=== PATIENT | female | born 1995 | race Two or more races ===

== ENCOUNTER 2021-04-16 15:54 | Emergency (ER) | payer OTHER ==
[~2021-04-16] VITALS: Ht 175.3 cm; Wt 100.0 kg
[2021-04-16] MEDS ORDERED: ALBUTEROL/IPRATROPIUM 2.5MG/0.5MG, 3 ML NPPB ONE (16:30)
[2021-04-16] MEDS ORDERED: LORazepam 1MG TABLET PO ONE (16:30)
--- NOTE | 2021-04-16 16:30 | NUR ---
PT PRESENTS TO ED WITH C/O SOB AND CHEST TIGHTNESS. STATES HX OF ASTHMA. PT PRESENTS ANXIOUS AND SOB. PT A&O, RESPS EVEN AND SHALLOW, VSS. OSITO GUTIERREZ AT BEDSIDE FOR EVAL.
[2021-04-16] MEDS ORDERED: ALBUTEROL/IPRATROPIUM 2.5MG/0.5MG, 3 ML ONE (16:40)
[2021-04-16] MEDS ORDERED: LORazepam 1MG TABLET ONE (16:40)
[2021-04-16 16:45] LABS: BASOPHILS % (AUTO) 1 % (0-1); EOSINOPHILS % (AUTO) 2 % (1-7); LYMPHOCYTES % (AUTO) 31 % (22-44); MEAN CORPUSCULAR HEMOGLOBIN 29.3 pg (27.0-34.8); MEAN CORPUSCULAR HGB CONC 33.2 g/dL (32.4-35.8); MEAN PLATELET VOLUME 8.6 fL (7.4-10.4); MONOCYTES % (AUTO) 7 % (2-9); NEUTROPHILS % (AUTO) 59 % (42-75); PLATELET COUNT 341 x10^3/uL (130-400); RED BLOOD COUNT 4.46 x10^6/uL (3.82-5.3); RED CELL DISTRIBUTION WIDTH 13.4 % (9.6-15.2)
[2021-04-16 16:46] LABS: MD NO
--- NOTE | 2021-04-16 16:47 | NUR ---
BREATHING TX ADMINSTERED, PT TOLERATING WELL. MEDICATED PER JAN. VSS.
[2021-04-16 16:54] LABS: ALBUMIN 3.3 g/dL (3.4-5.0); ANION GAP 7 mmol/L (5-15); CALCIUM 8.7 mg/dL (8.5-10.1); CHLORIDE 110 mmol/L (98-107); CREATININE 0.84 mg/dL (0.55-1.02)
--- NOTE | 2021-04-16 17:28 | NUR ---
PT RESTING IN BED, A&O, RESPS EVEN AND UNLABORED, VSS, NADN. BREATHING TREATMENT AND MEDICATION TOLERATED WELL AND EFFECTIVE. NO COMPLAINTS AT THIS TIME.
[2021-04-16 18:49] VITALS: BP 117/84
--- NOTE | 2021-04-16 18:59 | NUR ---
discharge instructions reviewed, pt verbalized understanding, ambulatory to discharge with steady gait.
== END 2021-04-16 19:00 | disposition home or self-care (01) ==
LOC: ED 18:30
DX: J45.31 Mild persistent asthma with (acute) exacerbation (principal); R06.02 Shortness of breath; F41.1 Generalized anxiety disorder
CPT/HCPCS: 36415; 71045; 80048; 82040; 85025; 93005; 94640; 99285